=== PATIENT | female | born 1940 | race Caucasian/White ===

== ENCOUNTER 2017-08-23 08:03 | Day surgery (SDC) | payer MEDICARE ==
[~2017-08-23 08:03] MED LIST: Propofol 200 MG/20 ML SDV ONE; fentaNYL 100 MCG/2 ML SDV ONE
[2017-08-23] MEDS ORDERED: Dextrose 5%-Lactated Ringers 1,000 ML IV SCH (08:30)
[2017-08-23] MEDS ORDERED: Glycopyrrolate 0.2 MG/ML 5 ML MDV ONE (08:44)
[2017-08-23] MEDS ORDERED: Atropine 0.4 MG/ML SDV ONE (08:44)
[2017-08-23 11:29] VITALS: BP 137/57
--- NOTE | 2017-08-24 15:52 | OR ---
DATE OF PROCEDURE: 08/23/2017 PREOPERATIVE DIAGNOSIS: Family history of colon carcinoma. POSTOPERATIVE DIAGNOSIS: Family history of colon carcinoma with a normal colonoscopic examination. OPERATIVE PROCEDURE: Flexible colonoscopy. ANESTHESIA: IV sedation. INDICATION FOR PROCEDURE: This 76-year-old female is presenting for a screening colonoscopy. Her father had a colon carcinoma. Otherwise, she has had no personal history of polyps or colonic neoplasia. Plan is to proceed with the colonoscopy with biopsies and/or polypectomy as indicated. Potential risks including bleeding and perforation were discussed, and the patient wishes to proceed. DETAILS OF PROCEDURE: The patient was taken to the operating room, placed in a left lateral decubitus position. IV sedation was administered after which the initial digital rectal exam was performed and was unremarkable. Colonoscope was then passed to the level of the rectum where retroflexion revealed uncomplicated hemorrhoidal columns. The scope was then eventually passed to the level of the cecum. The prep was quite good with there only being a small amount of liquid stool present. The exam otherwise was entirely normal. There were no areas of diverticula. No polyps or other signs of neoplasia and no areas of colitis. The scope was then withdrawn, the above findings reconfirmed, and the procedure then concluded. RECOMMENDATIONS: Repeat the colonoscopy in 5 years given the family history if at that time at age 81, her health is otherwise in reasonably good condition. Khanh Dos Santos MD /[id number]
== END 2017-08-23 11:49 | disposition home or self-care (01) ==
LOC: JP.SDS 08:03
PROVIDERS: ATTEND Surgery
DX: Z12.11 Encounter for screening for malignant neoplasm of colon (principal); K21.9 Gastro-esophageal reflux disease without esophagitis; I10 Essential (primary) hypertension; G47.30 Sleep apnea, unspecified; K59.09 Other constipation; E66.9 Obesity, unspecified; E53.8 Deficiency of other specified B group vitamins; Z68.30 Body mass index [BMI] 30.0-30.9, adult; Z98.84 Bariatric surgery status; Z80.0 Family history of malignant neoplasm of digestive organs; Z88.8 Allergy status to other drugs, medicaments and biological substances; Z98.890 Other specified postprocedural states
CPT/HCPCS: 45378; J2704; J3010; J7042; J0461

== ENCOUNTER 2020-03-25 08:12 | Day surgery (SDC) | payer MEDICARE ==
[2020-03-25] MEDS ORDERED: Lactated Ringers 1,000 ML IV SCH (08:45)
[2020-03-25] MEDS ORDERED: Cyanocobalamin (Vitamin B12) 1,000 MCG/ML SDV IM ONE (09:00)
[2020-03-25] MEDS ORDERED: Propofol 200 MG/20 ML SDV ONE (09:28)
[2020-03-25] MEDS ORDERED: fentaNYL 100 MCG/2 ML SDV ONE (09:28)
[2020-03-25] MEDS ORDERED: Midazolam 1 MG/ML 2 ML SDV ONE (09:28)
[2020-03-25] MEDS ORDERED: Glycopyrrolate 0.2 MG/ML 2 ML SDV IVPUSH ONE (09:30)
[2020-03-25] MEDS ORDERED: MVI, Adult with Vitamin K 10 ML, Thiamine 200 MG, Chromium/Copper/Mang/Selen/Zn 1 ML in... IV ONE ×4 (10:00)
[2020-03-25 11:34] VITALS: BP 143/72; PULSE 66
--- NOTE | 2020-03-30 14:28 | OR ---
DATE OF PROCEDURE: 03/25/2020 SURGEON: Khanh Dos Santos MD PREOPERATIVE DIAGNOSIS: Dysphagia, status post Adriane-en-Y gastric bypass. POSTOPERATIVE DIAGNOSES: 1. Dysphagia, status post Adriane-en-Y gastric bypass associated with moderate dilation of esophagus. 2. Narrow but supple, easily distensible gastrojejunostomy. OPERATIVE PROCEDURE: Upper GI endoscopy with dilation of gastrojejunostomy (10703). ANESTHESIA: IV sedation. INDICATIONS FOR PROCEDURE: This is a 79-year-old, status post previous Adriane-en-Y gastric bypass, presenting with some ongoing dysphagia. This problem has been on and off for over 10 years. Presently, the patient is on omeprazole 40 mg a day as well as Levsin 0.125 sublingual p.r.n. The latter medication appeared to be somewhat helpful based on the patient's history. Plan is to proceed with upper GI endoscopy with biopsies and/or dilation as indicated. Potential risks including bleeding and perforation were discussed, and the patient wishes to proceed. DETAILS OF PROCEDURE: The patient was taken to the operating room and placed in a left lateral decubitus position. IV sedation was administered, after which the upper GI endoscope was passed orally through the length of the esophagus and into the gastric pouch, and from there through the gastrojejunostomy roughly 20 cm into the Adriane limb. The patient was noted to have some slight narrowing grossly at the gastrojejunostomy, however, the gastroscope easily passed through that area and this area appeared to be quite supple and easily expandable. A Bard gastrointestinal catheter was then centered across the anastomosis and inflated to 54-Honduran size. This was held in position for 1 minute, after which balloon catheter was deflated and withdrawn. No significant dilation was noted, which confirmed the impression that there was not a significant stricture at this area. It was notable that the patient had no significant inflammation in the distal esophagus, gastric pouch, or gastrojejunostomy area, but the esophagus was somewhat dilated diffusely. 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 Plan will be to have the patient continue the present medications. As long as she is able to maintain her weight and overall nutritional status, which appears to be the case at this point, no further intervention would be needed. Follow up with Karma Fitch in [facility] in roughly 2 months. Khanh Dos Santos MD /[id number]
== END 2020-03-25 11:58 | disposition home or self-care (01) ==
LOC: JP.SDS 08:12
PROVIDERS: ATTEND Surgery
DX: R13.10 Dysphagia, unspecified (principal); K63.89 Other specified diseases of intestine; I10 Essential (primary) hypertension; Z98.84 Bariatric surgery status; Z88.5 Allergy status to narcotic agent; Z93.4 Other artificial openings of gastrointestinal tract status
CPT/HCPCS: 43245; J2704; J3010; J3411; J3420; J3490; J7120; J2250

== ENCOUNTER 2022-02-25 16:33 | Emergency (ER) | payer MEDICARE ==
[2022-02-25 18:40] VITALS: BP 136/72; PULSE 82
== END 2022-02-25 20:20 | disposition home or self-care (01) ==
LOC: JP.ED 16:33
DX: S01.81XA Laceration without foreign body of other part of head, initial encounter (principal); K21.9 Gastro-esophageal reflux disease without esophagitis; I10 Essential (primary) hypertension; E66.9 Obesity, unspecified; Z68.29 Body mass index [BMI] 29.0-29.9, adult; Z96.612 Presence of left artificial shoulder joint; Z79.899 Other long term (current) drug therapy; Z79.82 Long term (current) use of aspirin; Z88.5 Allergy status to narcotic agent; W01.10XA Fall on same level from slipping, tripping and stumbling with subsequent striking against unspecified object, initial encounter
CPT/HCPCS: 70450; 73020-26-LT; 73020-LT; 99281; 99284-25